=== PATIENT | male | born 1995 | race Caucasian/White ===

== ENCOUNTER 2016-09-22 09:45 | Emergency (ER) | payer BC ==
[~2016-09-22] VITALS: Ht 182.9 cm; Wt 64.4 kg
[~2016-09-22 09:45] MED LIST: FIORICET 50-301 EACH PO; LORATADINE10 M2 PO; MOTRIN800 MG PO; PEPCID20 MG PO
[2016-09-22 10:48] LABS: INFLUENZA A VIRAL ANTIGEN NEGATIVE; INFLUENZA B VIRAL ANTIGEN NEGATIVE
[2016-09-22] MEDS ORDERED: MOTRIN800 MG PO (11:55)
[2016-09-22 12:06] VITALS: BP 137/83
== END 2016-09-22 12:08 | disposition home or self-care (01) ==
LOC: EME 09:45
DX: B34.9 Viral infection, unspecified (principal); F17.210 Nicotine dependence, cigarettes, uncomplicated
CPT/HCPCS: 71020; 87502; 99281; 99284

== ENCOUNTER 2017-01-08 01:52 | Emergency (ER) | payer BC ==
[~2017-01-08] VITALS: Ht 182.9 cm; Wt 61.0 kg
[2017-01-08 04:21] VITALS: BP 122/82
== END 2017-01-08 04:22 | disposition home or self-care (01) ==
LOC: EME 01:52
DX: S60.011A Contusion of right thumb without damage to nail, initial encounter (principal); X58.XXXA Exposure to other specified factors, initial encounter; Y93.72 Activity, wrestling; F17.200 Nicotine dependence, unspecified, uncomplicated
CPT/HCPCS: 73130; 99281; 99283